=== PATIENT | female | born 1980 | race Caucasian/White ===

== ENCOUNTER 2017-02-23 08:34 | Emergency (ER) | payer OTHER ==
[~2017-02-23] VITALS: Ht 162.6 cm; Wt 122.5 kg
[~2017-02-23 08:34] MED LIST: ALBUTEROL SULF8.5 GM INH; CYCLOBENZAPRINE10 MG PO; CYMBALTA60 MG PO; FLUTICASONE PRO16 GM NAS; IBUPROFEN600 MG PO; LIDODERM700 MG TOP; MOTRIN IB200 MG PO; MULTI-DAY VITA1 EACH PO; OXYCODONE HCL5 MG PO; PERCOCET 5-3251 EACH PO; PRISTIQ ER50 MG PO; REGLAN10 MG PO; SENNA PLUS TAB1 EACH PO; [UNRECOGNIZED DRUG - OTHER] PO
[2017-02-23] MEDS ORDERED: XANAX0.5 MG PO (09:37)
--- NOTE | 2017-02-23 18:48 | EKG ---
[facility] [address] [facility] [place] [address] Signed Normal sinus rhythm Normal ECG When compared with ECG of 14-MAY-2016 08:37, No significant change was found Confirmed by IDALIA TAMAYO MD ([id number]) on 02/23/2017 6:48:48 PM Electronically Signed By: IDALIA TAMAYO MD 02/23/17 1848 PATIENT NAME: MOOSCOTT Electrocardiogram DATE OF : 80 PHYSICIAN: IDALIA TAMAYO MD REPORT #: [id number] REPORT IS CONFIDENTIAL AND NOT TO BE RELEASED WITHOUT AUTHORIZATION
== END 2017-02-23 09:57 | disposition home or self-care (01) ==
LOC: ED 08:34
DX: R07.9 Chest pain, unspecified (principal); F41.9 Anxiety disorder, unspecified; Z98.51 Tubal ligation status; Z88.5 Allergy status to narcotic agent; Z88.0 Allergy status to penicillin; Z88.8 Allergy status to other drugs, medicaments and biological substances; Z79.899 Other long term (current) drug therapy
CPT/HCPCS: 71010; 80053; 82150; 83690; 84484; 85025; 93005; 93010; 96374; 99284; J2060

== ENCOUNTER 2017-07-21 05:29 | Emergency (ER) | payer OTHER ==
[~2017-07-21] VITALS: Ht 162.6 cm; Wt 88.5 kg
[~2017-07-21 05:29] MED LIST changes: +XANAX0.5 MG PO
--- OUTSIDE RECORDS SUMMARY | 2017-07-21 05:41 | XMS | Clinical Summary ---
Demographics + + + | Address | [address] | | | [place] [address] | + + + | Home Phone | | + + + | Preferred Language | Unknown | + + + | Marital Status | | + + + | Presybeterian Affiliation | Unknown | + + + | Race | Unknown | + + + | Ethnic Group | Unknown | + + + Author + + + | Author | [facility] | + + + | Organization | [facility] | + + + | Address | Unknown | + + + | Phone | Unavailable | + + + Support + + +---------+ + | Name | Relationship | Address | Phone | + + +---------+ + | Alyx Trujillo | ECON | Unknown | | + + +---------+ + | Maame Nascimento | ECON | Unknown | | + + +---------+ + Care Team Providers + +------+ + | Care Campus Recruiter Name | Role | Phone | + +------+ + PP | Unavailable | + +------+ + Allergies Not on File Current Medications Not on file Active Problems Not on file Social History + +-------+ +--------+------+ | Tobacco Use | Types | Packs/Day | Years | Date | | | | | Used | | + +-------+ +--------+------+ | Never Assessed | | | | | + +-------+ +--------+------+ + + + | Sex Assigned at | Date Recorded | | | | + + + | Not on file | | + + + Plan of Treatment + + + + + | Health Maintenance | Due Date | Last Done | Comments | + + + + + | Vaccine: | | | | | Dtap/Tdap/Td (1 - | 0 | | | | Tdap) | | | | + + + + + | Cervical Cancer | | | | | Screening (Pap) | 2 | | | + + + + + | Vaccine: Influenza | | | | | (Season Ended) | 8 | | | + + + + + Results Not on filefrom Last 3 Months Insurance + +--------+ +------+-------+ + | Payer | Benefi | Subscriber | Type | Phone | Address | | | t Plan | ID | | | | | | / | | | | | | | Group | | | | | + +--------+ +------+-------+ + | MEDICAID | [place] | [id number] | | | [address] | | | N | | | | [place] | | | [place] | | | | [address] | | | BIOSTATISTICS DIRECTOR | | | | | + +--------+ +------+-------+ + + +--------+ +--------+ + + | Guarantor Name | Accoun | Relation to | Date | Phone | Billing Address | | | t Type | Patient | of | | | | | | | | | | + +--------+ +--------+ + + | TISHA TRUJILLO | Person | Self [birth year] | Home: | [address] | | | al/Fam | | 1980 | [phone] | [place] | | | [place] | | | [address] | [phone] | + +--------+ +--------+ + +"
--- OUTSIDE RECORDS SUMMARY | 2017-07-21 05:41 | XMS | Clinical Summary ---
Demographics + + + | Address | [address] | | | [place] [address] | + + + | Home Phone | | + + + | Preferred Language | Unknown | + + + | Marital Status | | + + + | Confucianism Affiliation | Unknown | + + + | Race | Unknown | + + + | Ethnic Group | Unknown | + + + Author + + + | Author | [employer] [facility] | + + + | Organization | [facility] | + + + | Address | [...] Team Providers + +------+ + | Care Glacing Machine Tender Name | Role | Phone | + [...] | | [place] | | | | [phone] | | | PATCHER HELPER | | | | | + +--------+ [...] | | al/Fam | | 1980 | [phone] | [place] | | | [place] | | | [address] | [phone] | + +--------+ +--------+ + +"
[2017-07-21] MEDS ORDERED: CYMBALTA30 MG PO (05:44)
[2017-07-21] MEDS ORDERED: TRAMADOL HCL50 MG PO (07:04)
== END 2017-07-21 07:20 | disposition home or self-care (01) ==
LOC: ED 05:29
DX: S29.012A Strain of muscle and tendon of back wall of thorax, initial encounter (principal); X58.XXXA Exposure to other specified factors, initial encounter; Z88.5 Allergy status to narcotic agent; Z88.8 Allergy status to other drugs, medicaments and biological substances; Z88.0 Allergy status to penicillin; Z79.899 Other long term (current) drug therapy
CPT/HCPCS: 72040; 72070; 80053; 85025; 96372; 99283; J1885

== ENCOUNTER 2017-08-19 06:11 | Emergency (ER) | payer OTHER ==
[~2017-08-19] VITALS: Ht 162.6 cm; Wt 82.5 kg
[~2017-08-19 06:11] MED LIST changes: +CYMBALTA30 MG PO; +TRAMADOL HCL50 MG PO
[2017-08-19] MEDS ORDERED: VENTOLIN HFA18 GM (06:23)
[2017-08-19] MEDS ORDERED: IBU800 MG PO (06:23)
[2017-08-19] MEDS ORDERED: DICLOFENAC SODI75 MG PO (06:42)
== END 2017-08-19 06:51 | disposition home or self-care (01) ==
LOC: ED 06:11
DX: M54.5 Low back pain (principal); F17.200 Nicotine dependence, unspecified, uncomplicated; Z88.5 Allergy status to narcotic agent; Z88.0 Allergy status to penicillin; Z88.1 Allergy status to other antibiotic agents; Z88.8 Allergy status to other drugs, medicaments and biological substances; Z79.899 Other long term (current) drug therapy
CPT/HCPCS: 99283

== ENCOUNTER 2018-07-04 13:38 | Emergency (ER) | payer OTHER ==
[~2018-07-04] VITALS: Ht 162.6 cm; Wt 79.4 kg
--- OUTSIDE RECORDS SUMMARY | ~2018-07-04 | XMS | Clinical Summary ---
Demographics + + + | Address | [address] | | | [place] [address] | + + + | Home Phone | | + + + | Preferred Language | Unknown | + + + | Marital Status | | + + + | Islam Affiliation | Unknown | + + + | Race | Unknown | + + + | Ethnic Group | Unknown | + + + Author + + + | Author | [employer] | + + + | Organization | [facility] | + + + | Address | [...] Team Providers + +------+ + | Care Co Op Name | Role | Phone | + [...] | | | | Screening (Pap) | 1 | | | + + + + + | Vaccine: Influenza | | | | | (Season Ended) | 9 | | | + + + + [...] +------+-------+ + | MEDICAID | [place] | [id number] | | | [address] | | | N | | | | [place] | | | [place] | | | | [phone] | | | CUSTOMER RELATIONS CONSULTANT | | | | | + +--------+ [...] | | al/Fam | | 1980 | [phone] | [place] | | | [place]if | | | [address] | [phone] | + +--------+ +--------+ + +"
--- OUTSIDE RECORDS SUMMARY | ~2018-07-04 | XMS | Clinical Summary ---
Demographics + + + | Address | [address] | | | [place] [address] | + + + | Home Phone | | + + + | Preferred Language | Unknown | + + + | Marital Status | | + + + | Alevism Affiliation | Unknown | + + + | Race | Unknown | + + + | Ethnic Group | Unknown | + + + Author + + + | Author | [employer] | + + + | Organization | [facility] | + + + | Address | [...] Team Providers + +------+ + | Care Sieve Repairer Name | Role | Phone | + [...] +------+-------+ + | MEDICAID | [place] | [id number] | | | [address] | | | N | | | | [place] | | | [place] | | | | [phone] | | | REVENUE ENFORCEMENT COLLECTION AGENT | | | | | + +--------+ [...] | | al/Fam | | 1980 | [phone] | [place] | | | [place] | | | [address] | [phone] | + +--------+ +--------+ + +"
[~2018-07-04 13:38] MED LIST changes: +DICLOFENAC SODI75 MG PO; +IBU800 MG PO; +VENTOLIN HFA18 GM
--- OUTSIDE RECORDS SUMMARY | 2018-07-04 13:42 | XMS ---
PreManage Notification: SCOTT CORTÉS Security Web Administrator Events No recent Security Events currently on file [facility] There are no care providers on record at this time. Shobha has no Care Guidelines for this patient. Zane VISIT COUNT (12 MO.) 4 MARGARITA Sanders TOTAL 4 NOTE: Visits indicate total known visits. ED/C VISIT TRACKING (12 MO.) 07/04/2018 13:39 [facility] [place] TYPE: Emergency COMPLAINT: - R SHOULDER PAIN 02/19/2018 09:24 [facility] [place] TYPE: Emergency COMPLAINT: - COUGH/BLOOD X 2 DIAGNOSES: - Acute upper respiratory infection, unspecified - Allergy status to narcotic agent status - Hemoptysis - Fever, unspecified - Allergy status to other drugs, medicaments and biological substances status - Allergy status to penicillin - Nicotine dependence, unspecified, uncomplicated 08/19/2017 06:12 [facility] [place] TYPE: Emergency COMPLAINT: - BACK PAIN/FALL DIAGNOSES: - Allergy status to other drugs, medicaments and biological substances status - Nicotine dependence, unspecified, uncomplicated - Allergy status to penicillin - Allergy status to narcotic agent status - Allergy status to other antibiotic agents status - Low back pain - 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 07/21/2017 05:30 [facility] [place] TYPE: Emergency COMPLAINT: - RT SIDED NECK/SHOULDER PAIN DIAGNOSES: - Dorsalgia, unspecified - Other usp (current) drug therapy - Allergy status to narcotic agent status - Exposure to other specified factors, initial encounter - Allergy status to other drugs, medicaments and biological substances status - Strain of muscle and tendon of back wall of thorax, initial encounter - Allergy status to penicillin INPATIENT VISIT TRACKING (12 MO.) No inpatient visits to display in this time frame [email or web address]
== END 2018-07-04 14:19 | disposition home or self-care (01) ==
LOC: ED 13:38
DX: S43.401A Unspecified sprain of right shoulder joint, initial encounter (principal); X50.0XXA Overexertion from strenuous movement or load, initial encounter; F17.200 Nicotine dependence, unspecified, uncomplicated; Z88.5 Allergy status to narcotic agent; Z88.0 Allergy status to penicillin; Z88.8 Allergy status to other drugs, medicaments and biological substances; Z79.899 Other long term (current) drug therapy
CPT/HCPCS: 99283

== ENCOUNTER 2020-05-10 10:54 | Emergency (ER) | payer OTHER ==
[~2020-05-10] VITALS: Ht 162.6 cm; Wt 90.7 kg
--- OUTSIDE RECORDS SUMMARY | 2020-05-10 10:58 | XMS ---
PreManage Notification: SCOTT CORTÉS Security Review Nurse Events No recent Security Events currently on file CRITERIA MET - [facility] - Has Care Guidelines CARE PROVIDERS NITESH HANSON Internal Medicine 07/05/2018-Current PHONE: [phone] Guidelines Source: [employer] [facility] Guidelines Date: 08/08/2019 Care Coordination: Member is currently enrolled in Mental Health Services through [employer]. If services are needed through [employer] please call: Mateo [phone] [place]on[place]/Cesar Guy\T\nbsp; [phone] [facility] [phone] Care History Medical/Surgical 07/05/2018 [facility] - Patient is currently established with [facility]. If patient is seen in the ED during business hours. Please contact CHWs at [facility]. Care Recommendation: This patient has had 5 or more Emergency Department visits in the last 12 months.\T\nbsp; Patient requires education on the scope and purpose of the ED as an acute care provider not a Primary Care Provider and should not be utilized for chronic conditions.\T\nbsp; These are guidelines and the provider should exercise clinical judgment when providing care. E.D. VISIT COUNT (12 MO.) 1 MARGARITA Sanders TOTAL 1 NOTE: Visits indicate total known visits. ED/UCC VISIT TRACKING (12 MO.) 05/10/2020 10:55 [facility] [place] TYPE: Emergency COMPLAINT: - FALL, HEAD AND BACK PAIN, SOB INPATIENT VISIT TRACKING (12 MO.) No inpatient visits to display in this time frame [id number]
[2020-05-10] MEDS ORDERED: PRAZOSIN HCL1 MG PO (11:07)
[2020-05-10] MEDS ORDERED: NYSTATIN15 GM TOP (11:07)
[2020-05-10] MEDS ORDERED: ONDANSETRON ODT8 MG PO (12:41)
== END 2020-05-10 13:04 | disposition home or self-care (01) ==
LOC: ED 10:54
DX: S06.0X9A Concussion with loss of consciousness of unspecified duration, initial encounter (principal); S10.93XA Contusion of unspecified part of neck, initial encounter; S20.229A Contusion of unspecified back wall of thorax, initial encounter; W01.198A Fall on same level from slipping, tripping and stumbling with subsequent striking against other object, initial encounter; Z88.5 Allergy status to narcotic agent; Z88.8 Allergy status to other drugs, medicaments and biological substances; Z88.0 Allergy status to penicillin; Z88.1 Allergy status to other antibiotic agents; Z79.899 Other long term (current) drug therapy
CPT/HCPCS: 99283

== ENCOUNTER 2021-01-03 05:53 | Day surgery (SDC) | payer OTHER ==
[~2021-01-03] VITALS: Ht 162.6 cm; Wt 89.5 kg
[~2021-01-03 05:53] MED LIST changes: +GABAPENTIN100 MG PO; +NYSTATIN15 GM TOP; +ONDANSETRON ODT8 MG PO; +PRAZOSIN HCL1 MG PO
--- NOTE | 2021-01-03 07:47 | NUR ---
PT ALERT,ORIENTED AND SUPPORTED BY HER ELSA BOTH ARE PLEASANT, ESLA WILL REMAIN DURING SURGERY-GAVE DIRECTIONS FOR BLDG. ALL QUESTIONS ASKED WERE ANSWERED. PT WAITING FOR DR MALIK. SEEM PLEASED WITH CARE. GAVE ENCOURAGEMENT AND BLESSING. WILL FOLLOW NEEDED
--- NOTE | 2021-01-03 08:54 | NUR ---
01/03/21 0888 Eliana Doherty 0880 PATIENT ARRIVES TO PACU UNRESPONSIVE TO PAIN, ORAL AIRWAY IN PLACE. RESP EVEN AND UNLABORED, NEEDS OCCASIONAL JAW THRUST, MASK AT 8 LITERS.
--- NOTE | 2021-01-03 10:19 | NUR ---
1019 PATIENT UP WITH STANDBY ASST TO COMMODE PER PATIENT REQUEST TO URINATE. TAKING SIPS OF WATER.
--- NOTE | 2021-01-03 11:05 | NUR ---
PATIENT SITTING UP IN BED. AWAKE OFF AND ON, BUT STILL VERY DROWSY. RESP EVEN AND UNLABORED, NC OFF, ROOM AIR SATS >95%. PATIENT EATING CRACKERS. C/O NAUSEA. MEDICATED FOR NAUSEA. ALSO CONTINUES TO RATE PAIN 8/10. EXPLAINED TO PATIENT SHE WILL NEED TO HAVE A LITTLE FOOD IN HER STOMACH SO THAT SHE DOES HAVE ANY WORSE NAUSEA, THEN WILL MEDICATE WITH PAIN PILL. PATIENT AND SPOUSE AGREE WITH PLAN. AT BEDSIDE, CALL LIGHT WITHIN REACH.
--- NOTE | 2021-01-03 11:15 | NUR ---
PATIENT UP TO BEDSIDE COMMODE WITH STANDBY ASST. UNMEASURED URINE X1. BACK TO BED. CALL LIGHT WITHIN REACH. SPOUSE AT BEDSIDE. ENCOURAGED PATIENT TO TAKE SIPS OF WATER AND EAT A CRACKER.
--- NOTE | 2021-01-03 12:25 | NUR ---
1225 PT COMPLAINS OF PAIN 8-12/06, SHE ATE CRACKERS AND A PUDDING CUP, I CAME BACK INTO HER ROOM WITH PAIN MEDS AND PT COMPLAINS OF NAUSEA, PAIN PILL HELD
--- NOTE | 2021-01-03 12:53 | NUR ---
1245 PT WALKED TO THE BATHROOM WITH MINIMAL ASSIST. SHE WAS ABLE TO VOID 400ML OF CLEAR YELLOW URINE
[2021-01-04] MEDS ORDERED: PROMETHAZINE HC25 M1 PO (00:35)
[2021-01-04] MEDS ORDERED: DILAUDID2 MG PO (11:20)
--- NOTE | 2021-01-06 14:04 | OR ---
[facility] [address] [place], [place] [address] Signed DATE OF OPERATION: 01/03/2021 SURGEON: Devi Malik MD PREOPERATIVE DIAGNOSIS: Chronic cholecystitis. POSTOPERATIVE DIAGNOSES: 1. Chronic cholecystitis. 2. Cholesterolosis. PROCEDURE: Laparoscopic cholecystectomy with intraoperative cholangiogram. ESTIMATED BLOOD LOSS: None. FINDINGS: The intraoperative cholangiogram was unremarkable. The gallbladder showed significant cholesterolosis. INDICATIONS: Tisha is a 40-year-old female with a body mass index of 34. She has been having trouble with a belt-like epigastric abdominal pain with associated nausea and vomiting. It has been getting worse. It is worse after she eats. She was trying to follow a diabetic diet along with her . Nevertheless, it has gotten worse the last year. She went to her primary care provider. Gallbladder ultrasound was unremarkable. The HIDA scan showed her gallbladder ejection fraction good at 76%. However, injection of the CCK reproduced her symptoms. As a result, she was asked to see me as a general surgeon. In the office, I gave Tisha a booklet on the gallbladder. We reviewed the location and function of the gallbladder. We have reviewed laparoscopic versus open cholecystectomy. She understands expected intraop and postop course. There is risk with the surgery including, but not limited to bleeding, infection, scarring, change in contour of the skin, damage to bowel, damage to the main bile duct, incisional hernias, and other unforeseen comorbidities. She had expressed understanding and wished to proceed. PROCEDURE IN DETAIL: I met with Tisha in our preop area along with her . After answering the questions, Tisha was taken into the operating room. She was placed in the supine position under general endotracheal tube anesthesia. She was given preoperative antibiotics along with Electronically Signed By: DEVI MALIK MD 01/03/21 1138 PATIENT NAME: TISHA CORTÉS OPERATIVE REPORT DATE OF : 80 REPORT #: [id number] PHYSICIAN: DEVI MALIK MD PCP: SHERI ARNOLD MD REPORT IS CONFIDENTIAL AND NOT TO BE RELEASED WITHOUT AUTHORIZATION [facility] [address] [place], [place] [address] Signed subcutaneous heparin. SCDs were utilized. She was then prepped and draped in the usual sterile fashion. All trocars were then placed in the usual positions under direct visualization of camera without difficulty. The gallbladder was grasped and elevated in the right upper quadrant. We took pictures throughout for photodocumentation. The triangle of Calot was dissected free. The cholangiocatheter was inserted into the cystic duct. The intraoperative cholangiogram was performed. The intraoperative cholangiogram was unremarkable. The cystic duct stump was secured with a PDS Endoloop and 2 clips were placed across the cystic duct stump to larry its location. Two clips have been placed across the cystic artery and it was divided. The gallbladder was then removed from the gallbladder fossa with the help of the cautery and placed into an EndoCatch bag. The gallbladder fossa and right upper quadrant were irrigated and suctioned out until clear. We used our laparoscopic suturing device to pass 0 Vicryl suture on either side of the fascia of the subxiphoid trocar site. This was tied down to close this fascia primarily. After this, all the gas was allowed to escape and all the trocars were removed along with the gallbladder. The gallbladder was passed off the table to our circulating nurse for photodocumentation. It demonstrated significant cholesterolosis. After this, the fascia of the supraumbilical trocar site was closed with interrupted and [id number] 0 Vicryl suture. Local anesthetic was injected into all trocar sites. The skin and dermis of each trocar site were closed with interrupted 3-0 subcuticular Monocryl sutures. Dry gauze and tape were applied over all incisions. Tisha was then awakened from anesthesia, extubated in the OR and taken to the recovery room in stable condition. Devi Malik MD ALB/MODL /[id number] cc: MD Sheri Velasquez MD Copies: DEVI MALKI MD Electronically Signed By: DEVI MALIK MD 01/03/21 1138 PATIENT NAME: TISHA CORTÉS OPERATIVE REPORT DATE OF : 80 REPORT #: [id number] PHYSICIAN: DEVI MALIK MD PCP: SHERI ARNOLD MD REPORT IS CONFIDENTIAL AND NOT TO BE RELEASED WITHOUT AUTHORIZATION [address] [address] Signed ~ Electronically Signed By: DEVI MALIK MD 01/03/21 1138 PATIENT NAME: MOOTISHA MICAH OPERATIVE REPORT DATE OF : 80 REPORT #: [id number] PHYSICIAN: DEVI MALIK MD PCP: SHERI ARNOLD MD REPORT IS CONFIDENTIAL AND NOT TO BE RELEASED WITHOUT AUTHORIZATION
--- NOTE | 2021-01-06 15:57 | PATH ---
[facility] [address] [place], [place] [address] Signed SPECIMEN(S): A GALLBLADDER SPECIMEN SOURCE: A. GALLBLADDER CLINICAL HISTORY: Chronic cholecystitis. FINAL PATHOLOGIC DIAGNOSIS: Gallbladder, cholecystectomy: - Gallbladder without significant histopathologic changes. TWK:[facility]:C2NR MICROSCOPIC EXAMINATION: Histologic sections of all submitted blocks are examined by light microscopy. These findings, together with the gross examination, support the pathologic diagnosis. GROSS DESCRIPTION: The specimen, labeled "AP, gallbladder," is received in formalin and consists of: Specimen: Previously opened gallbladder. Dimensions: 5.7 cm in length 1.0 cm in inner circumference. Serosa: Violaceous and smooth. Cystic Duct: Unobstructed. Calculi: No calculi are grossly identified within the gallbladder or within the container. Mucosa: [place] and velvety. Wall thickness: 0.2 cm. Lymph node: No pericystic lymph nodes are grossly identified. Additional: None. Accounts Administrator sections are submitted in cassette (A1). JS (under the direct supervision of a pathologist) The Gross Description was prepared using a voice recognition system. The report was reviewed for accuracy; however, sound-alike word errors, addition and/or deletions may occur. If there is any question about this report, please contact Client Services. PERFORMING LABORATORY: The technical component was performed by [employer], [address] [place] [address] (Robotype Operator: Scott Bhardwaj MD; CLIA# [id number]). PATIENT NAME: SCOTT CORTÉS PATHOLOGY DATE OF : 80 REPORT #: [id number] PHYSICIAN: RISHI PATHOLOGY PCP: SANCHEZ ARNOLD MD REPORT IS CONFIDENTIAL AND NOT TO BE RELEASED WITHOUT AUTHORIZATION [facility] [address] [place], [place] [address] Signed Professional interpretation was performed by [facility], [address] [address] (CLIA# [id number]). Diagnostician: Nolan Cox MD Pathologist Electronically Signed 01/06/2021 Copies: ~ PATIENT NAME: SCOTT CORTÉS PATHOLOGY DATE OF : 80 REPORT #: [id number] PHYSICIAN: RISHI PATHOLOGY PCP: SANCHEZ ARNOLD MD REPORT IS CONFIDENTIAL AND NOT TO BE RELEASED WITHOUT AUTHORIZATION
== END 2021-01-03 13:00 | disposition home or self-care (01) ==
LOC: DS 05:53
PROVIDERS: ATTEND Colon & Rectal Surgery
PROC: BF03YZZ Plain Radiography of Gallbladder and Bile Ducts using Other Contrast (ICD-10-PCS; 2021-01-03)
PROC: 0FT44ZZ Resection of Gallbladder, Percutaneous Endoscopic Approach (ICD-10-PCS; principal; 2021-01-03 06:45)
DX: K81.1 Chronic cholecystitis (principal); J45.909 Unspecified asthma, uncomplicated
CPT/HCPCS: 74300; J0131; J0690; J1100; J1170; J1644; J1790; J1885; J2001; J2250; J2405; J2704; J7121; Q9967

== ENCOUNTER 2021-01-03 22:40 | Emergency (ER) | payer OTHER ==
[~2021-01-03] VITALS: Ht 162.6 cm; Wt 89.4 kg
--- OUTSIDE RECORDS SUMMARY | 2021-01-03 22:42 | XMS ---
PreManage Notification: SCOTT CORTÉS Security Vegetable I Farmworker Events No recent Security Events currently on file CRITERIA MET - Group Notification - PDMP - - Has Care Guidelines CARE PROVIDERS NITESH HANSON Internal Medicine 07/05/2018-Current PHONE: [phone] SANCHEZ ARNOLD [facility] 05/14/2020-Current PHONE: [phone] Guidelines Source: [employer] [facility] Guidelines Date: 08/08/2019 Care Coordination: Member is currently enrolled in Mental Health Services through [employer]. If services are needed through [employer] please call: Mateo [phone] [place]/[facility]; [phone] [facility] [phone] Care History Medical/Surgical 05/15/2020 [facility] Concussion from fall on ice. Appropriate use of ED. 07/05/2018 [facility] - Patient is currently established with [facility]. If patient is seen in the ED during business hours. Please contact CHWs at [facility]. Care Recommendation: This patient has had 5 [...] providing care. E.D. VISIT COUNT (12 MO.) 2 MARGARITA Sanders TOTAL 2 NOTE: Visits indicate total known visits. ED/UCC VISIT TRACKING (12 MO.) 01/03/2021 22:40 [facility] [place] TYPE: Emergency COMPLAINT: - POST OP PROBLEM 05/10/2020 10:[address] 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 - Concussion with loss of consciousness of unspecified duration, initial encounter - Allergy status to narcotic agent - Contusion of unspecified part of neck, initial encounter - Fall on same level from slipping, tripping and stumbling with subsequent striking against other object, initial encounter - Headache, unspecified - Contusion of unspecified back wall of thorax, initial encounter - Allergy status to other drugs, medicaments and biological substances - Allergy status to other antibiotic agents - Allergy status to penicillin INPATIENT VISIT TRACKING (12 MO.) No inpatient visits to display in this time frame [email or web address]
[2021-01-04] MEDS ORDERED: PROMETHAZINE HC25 M1 PO (00:35)
[2021-01-04] MEDS ORDERED: DILAUDID2 MG PO (11:20)
== END 2021-01-04 00:50 | disposition home or self-care (01) ==
LOC: ED 22:40
DX: G89.18 Other acute postprocedural pain (principal); R10.11 Right upper quadrant pain; R11.2 Nausea with vomiting, unspecified; M79.7 Fibromyalgia; Z88.0 Allergy status to penicillin; Z88.5 Allergy status to narcotic agent; Z88.8 Allergy status to other drugs, medicaments and biological substances; Z88.6 Allergy status to analgesic agent; Z88.1 Allergy status to other antibiotic agents; Z79.899 Other long term (current) drug therapy
CPT/HCPCS: 74177; 80053; 83690; 84703; 85025; 96375; 99284-25; J1885; J2765; J7030; Q9967

== ENCOUNTER 2021-01-04 09:25 | Emergency (ER) | payer OTHER ==
[~2021-01-04] VITALS: Ht 162.6 cm; Wt 93.9 kg
[~2021-01-04 09:25] MED LIST changes: +PROMETHAZINE HC25 M1 PO
--- OUTSIDE RECORDS SUMMARY | 2021-01-04 09:28 | XMS ---
PreManage Notification: SCOTT CORTÉS Security Noc Engineer Events No recent Security Events currently on file CRITERIA MET - PDMP - Group Notification - [facility] - Has Care Guidelines - [facility] - 2 Visits in 30 Days CARE PROVIDERS NITESH HANSON Internal Medicine 07/05/2018-Current PHONE: [phone] SANCHEZ ARNOLD [facility] 05/14/2020-Current PHONE: [phone] Guidelines Source: [employer] [facility] Guidelines Date: 08/08/2019 Care Coordination: Member is currently enrolled in Mental Health Services through [employer]. If services are needed through [employer] please call: Mateo [phone] [facility]; [phone] Crisis [phone] Care History Medical/Surgical 05/15/2020 [facility] Concussion from fall on ice. Appropriate use of ED. 07/05/2018 [facility] - Patient is currently established with [facility]. If patient is seen in the ED during business hours. Please contact CHWs at [facility]. Care Recommendation: This patient has had 5 [...] providing care. E.D. VISIT COUNT (12 MO.) 3 MARGARITA Sanders TOTAL 3 NOTE: Visits indicate total known visits. ED/UCC VISIT TRACKING (12 MO.) 01/04/2021 09:26 [facility] [place] TYPE: Emergency COMPLAINT: - POST OP PAIN 01/03/2021 22:40 [facility] [place] TYPE: Emergency COMPLAINT: - POST OP PROBLEM 05/10/2020 10:55 [facility] [place] TYPE: Emergency COMPLAINT: - FALL, HEAD AND BACK PAIN, SOB DIAGNOSES: - Other intermediate (current) drug therapy - Concussion with loss [...] visits to display in this time frame [email or web address]
[2021-01-04] MEDS ORDERED: DILAUDID2 MG PO (11:20)
== END 2021-01-04 11:35 | disposition home or self-care (01) ==
LOC: ED 09:25
DX: G89.18 Other acute postprocedural pain (principal); R10.10 Upper abdominal pain, unspecified; M79.10 Myalgia, unspecified site; Z88.0 Allergy status to penicillin; Z88.5 Allergy status to narcotic agent; Z88.2 Allergy status to sulfonamides; Z88.8 Allergy status to other drugs, medicaments and biological substances; Z88.1 Allergy status to other antibiotic agents; Z79.899 Other long term (current) drug therapy
CPT/HCPCS: 80053; 83690; 85025; 96374; 96375; 99283-25; J1170; J1885; J2405; J7030

== ENCOUNTER 2023-07-09 05:50 | Day surgery (SDC) | payer OTHER ==
[2023-07-05 11:58] VITALS: BP 108/71
[~2023-07-09] VITALS: Ht 162.6 cm; Wt 86.4 kg
[~2023-07-09 05:50] MED LIST changes: +BUTALB-ACETAMI1 EAC2 PO; +DILAUDID2 MG PO; +LACTATED RINGER'S 1,000 ML IV SCH
[2023-07-09 06:07] VITALS: BP 112/70
[2023-07-09] MEDS ORDERED: LIDOCAINE HCL 1% 5 ML SDV INJ ONE (07:00)
[2023-07-09] MEDS ORDERED: HEParin SOD (PORCINE) 5,000 UNIT/0.5 ML SYR SUB-Q SCH (07:00)
[2023-07-09] MEDS ORDERED: IBLOOD GLUCOSE TEST STRIP 1 EA TEST VI PRN ×2 (07:00→09:30)
[2023-07-09] MEDS ORDERED: CEFAZOLIN SODIUM 2 GM/20 ML SYR IV SCH (07:00)
--- NOTE | 2023-07-09 07:31 | NUR ---
ATTEMPTED TO VISIT DURING SPIRITUAL CARE ROUNDS. PT REQUESTED ASSISTANCE GETTING TO BATHROOM. I INFORMED NURSE. PROVIDED SILENT PRAYER.
[2023-07-09] MEDS ORDERED: dexmedeTOMIDine HCl 200 MCG/2 ML VIAL ONE (08:44)
[2023-07-09] MEDS ORDERED: KETAMINE in NS 50 MG/5 ML SYR ONE (08:44)
[2023-07-09] MEDS ORDERED: MIDAZOLAM HCL 2 MG/2 ML VIAL ONE (08:44)
[2023-07-09] MEDS ORDERED: DEXAMETHASONE SOD PHOS 4 MG/ML VIAL ONE (08:44)
[2023-07-09] MEDS ORDERED: ondansetron HCL 4 MG/2 ML VIAL ONE (08:44)
[2023-07-09] MEDS ORDERED: KETOROLAC TROMETHAMINE 30 MG/ML VIAL ONE (08:44)
[2023-07-09] MEDS ORDERED: propofoL 200 MG/20 ML VIAL ONE (08:44)
[2023-07-09] MEDS ORDERED: LIDOCAINE HCL 1% 30 ML SDV ONE ×2 (08:45→09:47)
[2023-07-09] MEDS ORDERED: MIDAZOLAM HCL 2 MG/2 ML VIAL IV PRN (09:30)
[2023-07-09] MEDS ORDERED: NALOXONE HCL 0.4 MG SYR IV PRN ×2 (09:30→11:15)
[2023-07-09] MEDS ORDERED: HYDROmorphone HCL 1 MG/ML SYR IV PRN ×2 (09:30→11:15)
[2023-07-09] MEDS ORDERED: ondansetron HCL 4 MG/2 ML VIAL IV PRN ×2 (09:30→11:15)
[2023-07-09] MEDS ORDERED: ACETAMINOPHEN 1,000 MG/100 ML VIAL ONE (09:43)
[2023-07-09] MEDS ORDERED: BUPIVACAINE HCL 0.25% 30 ML SDV ONE (09:46)
[2023-07-09] MEDS ORDERED: LIDOCAINE 1% W/ EPI 1:200,000 30 ML SDV ONE (09:49)
[2023-07-09] MEDS ORDERED: GLYCOPYRROLATE 1 MG/5 ML MDV ONE (09:55)
[2023-07-09] MEDS ORDERED: LACTATED RINGER'S 1,000 ML IV ONE (10:26)
--- NOTE | 2023-07-09 11:12 | NUR ---
07/09/23 Jennifer2 Vaughn Chandler 1053: PT ARRIVED TO PACU VIA STRETCHER. PT ON RA. SATS HIGH 90'S. PT RESPONSIVE TO TOUCH.
[2023-07-09] MEDS ORDERED: PROCHLORPERAZINE EDISYLATE 10 MG/2 ML VIAL IV PRN (11:15)
[2023-07-09] MEDS ORDERED: HYDROmorphone HCL 4 MG TAB PO PRN (11:15)
[2023-07-09 11:41] VITALS: BP 119/94
--- NOTE | 2023-07-09 11:44 | NUR ---
PT ARRIVES TO DS UNIT FROM PACU VIA STRETCHER. PT REPORTS PAIN IS 4/10 AND DESCRIBES OF PRESSURE AT THIS TIME. PT IS A&O AND ASKING QUESTIONS APPROPRIATELY. PT REPORTS MINOR DIZZINESS, TOLERATING ICE WATER AND CRACKERS WITHOUT DIFFICULTY. PT IS ON RA W/O2 >90% VIA RA, RESPIRATIONS ARE EVEN AND UNLABORED, NO SIGNS OF DISTRESS. REPORT RECEIVED FROM CORDELL RN, FAMILY AT BEDSIDE, DRESSING VISUALIZED W/RN. ICE PACK READJUSTED TO BETTER SUIT ANATOMICAL POSITION OF DRESSING, PT STATES IMPROVEMENT IN PAIN. CALL LIGHT WITHIN REACH, NO FURTHER NEEDS AT THIS TIME. FAMILY REMAINS AT BEDSIDE.
[2023-07-09 12:45] VITALS: BP 102/61
--- NOTE | 2023-07-09 12:51 | NUR ---
PATO 1225-PATEINT HAS BEEN EATING CRACKERS. STATES CONTINUES TO HAVE SOME NASUEA. MEDICATION GIVEN PER EMAR.
--- NOTE | 2023-07-09 13:06 | NUR ---
LE 1245-PT RATES PAIN 5/10. PAIN MEDICATION GIVEN PER EMAR. LE 1247-PATEINT LAYING IN BED AWAKE. RESP EVEN AND UNLABORED. RATES PAIN 5/10. DRESSING IS CLEAN, DRY, AN INTACT. FAMILY IN ROOM. CALL LIGHT WITHIN REACH.
--- NOTE | 2023-07-09 13:08 | NUR ---
LE 1255-PATIENT SITTING AT BEDSIDE. FEELS A LITTLE DIZZY. LE 1257-PATIENT AMBULATES TO RESTROOM WITH 1 RN ASSIST. GAIT UNSTEADY BUT TOLERATED WELL. PATIENT VOIDS 700ML OF YELLOW URINE. LE 1305-PATINET BACK TO ROOM. NO OTHER NEEDS AT THIS TIME. CALL LIGHT WITHIN REACH.
[2023-07-09 13:41] VITALS: BP 99/57
--- NOTE | 2023-07-09 13:58 | NUR ---
LE 1341-PATIENT AWAKE LAYING AWAKE. RESP EVEN AND UNLABORED. RATES PAIN 2/10. DENIES NAUSEA. DRESSING IS CLEAN, DRY, AND INTACT. PATIENT IS READY TO GO HOME. PATIENT WILL GET DRESSED. FAMILY IN ROOM. CALL LIGHT WITHIN REACH.
--- NOTE | 2023-07-09 14:01 | NUR ---
PATO 1352- WENT OVER DISCHARGE INSTRUCTIONS WITH PATIENT. ALL QUESTIONS ANSWERED. PATIENT AMBULATES TO WHEELCHAIR. RIDE PROVIDED TO FRONT OF HOSPITAL WHERE WAS WAITING WITH THE CAR.
--- NOTE | 2023-07-11 08:18 | OR ---
[facility] [address], [place] [address] Signed DATE OF OPERATION: 07/09/2023 SURGEON: Devi Malik MD PREOPERATIVE DIAGNOSES: Atypical lobular hyperplasia, right breast (6 o'clock position). POSTOPERATIVE DIAGNOSIS: Atypical lobular hyperplasia, right breast (6 o'clock position). PROCEDURES: Right breast needle localization excisional biopsy. ESTIMATED BLOOD LOSS: None. INDICATIONS: Tisha is a 43-year-old female with a body mass index of 32. She had gone for her mammogram in January 2023. She had some calcifications at the 6 o'clock positions of the right breast. A diagnostic mammogram in February 2023 confirmed these calcifications. Stereotactic breast biopsy was done in March 2023 and the biopsies came back with atypical lobular hyperplasia. She had been asked to see me as a local general surgeon functional tester for an excisional biopsy to obtain more tissue. I had met with Tisha in the office and I gave her our brochure on breast biopsies and breast surgeries. We looked at that carefully page by page. She understands the nature of a needle localization excisional biopsy. She understands she will be headed to the x-ray department first for placement of the wire and come over to the OR afterwards. She understands the wire and all the tissue around the wall be removed and sent off to the radiology department while she is asleep. Afterwards, we will close up the incision and she will be able to go home later that day. There is risk to the surgery including, but not limited to bleeding, infection, scarring, change in contour of the skin as well as possible need for additional surgeries and/or treatments. She had expressed understanding and wished to proceed. PROCEDURE IN DETAIL: I met with Tisha and her and family in our preop area. She had her wire in place. We all confirmed that indeed it was the right breast and we marked that appropriately. After that, Tisha was taken in the operating room and placed in the supine position under general anesthesia. She was given preoperative antibiotics along with subcutaneous heparin. SCDs were utilized. She was then prepped and draped in the usual sterile Electronically Signed By: DEVI MALIK MD 07/11/23 0818 PATIENT NAME: TISHA CORTÉS OPERATIVE REPORT DATE OF : 80 REPORT #: [id number] PHYSICIAN: DEVI MALIK MD PCP: SANCHEZ ARNOLD MD REPORT IS CONFIDENTIAL AND NOT TO BE RELEASED WITHOUT AUTHORIZATION [facility] [address], [place] [address] Signed fashion. The calcifications were at the 6 o'clock radiant deep in the breast near the chest wall. Therefore, the wire came out next to the inframammary crease. We therefore used an incision along the inframammary crease to include the wire. We followed the tissue down and around the end of the wire all the way up next to the chest wall as reviewed on the mammogram. The specimen was then oriented with silk sutures. The wire was facing inferiorly at the inframammary crease. The deep stitches all the way up cephalad toward the chest wall and of course we had medial-lateral stitches as well. The wound was then irrigated and suctioned out until clear with water. We brought the tissues together with interrupted 3-0 Monocryl sutures. The dermis was reapproximated with interrupted 3-0 subcuticular Monocryl sutures. The skin edges were reapproximated with a running 5-0 fast absorbing plain gut suture. Dry gauze and tape were then applied. Tisha was then awakened from her anesthesia, extubated in the OR, and taken to recovery room in stable condition. Devi Malik MD ALB/MODL /[id number] cc: MD Devi Fajardo MD Copies: DEVI MALIK MD ~ Electronically Signed By: DEVI MALIK MD 07/11/23 0818 PATIENT NAME: TISHA CORTÉS OPERATIVE REPORT DATE OF : 80 REPORT #: [id number] PHYSICIAN: DEVI MALIK MD PCP: SANCHEZ ARNOLD MD REPORT IS CONFIDENTIAL AND NOT TO BE RELEASED WITHOUT AUTHORIZATION
--- NOTE | 2023-07-12 10:38 | PATH ---
[facility] [address], [place] [address] Signed SPECIMEN(S): A RIGHT BREAST TISSUE SPECIMEN SOURCE: A. RIGHT BREAST TISSUE FINAL PATHOLOGIC DIAGNOSIS: Breast, right, excision: - Atypical lobular hyperplasia - Usual ductal hyperplasia - Pseudoangiomatous stromal hyperplasia - Biopsy site changes - Microcalcifications identified in association with ALH and nonneoplastic tissue BRP MICROSCOPIC EXAMINATION: Histologic sections of all submitted blocks are examined by light microscopy. These findings, together with the gross examination, support the pathologic diagnosis. GROSS DESCRIPTION: The specimen, labeled and designated "Ye uMrphy " and designated on the requisition "right breast tissue," is received in formalin and consists of 81 gram oriented portion of yellow-underwood fibroadipose tissue that is 8.6 x 6.5 x 3.8 cm and has an inserted metal localization wire that enters anteriorly adjacent to three stitches. A short suture is present and identifies the superior margin, a long suture identifies the lateral margin, a double suture identifies the deep/posterior margin, and 3 sutures identified at wire identified near skin per requisition. The specimen is inked as follows: superior - blue; inferior - green; medial - red; lateral - orange; anterior - yellow; and posterior - black. The specimen is serially sectioned from anterior to posterior into 16 slices revealing a metallic and biopsy cavity clip in slice 11. The clip is surrounded by pink delicate fibrous tissue and is 6.1 cm from the anterior soft tissue margin, 2.6 cm from the posterior soft tissue margin, 0.5 cm from the superior soft tissue margin, 3.2 cm from the inferior soft tissue margin, 2.1 cm from the medial soft tissue margin, and 3.3 cm from the lateral soft tissue margin. Approximately 90% of the remaining specimen is a yellow-underwood greasy adipose PATIENT NAME: SCOTT CORTÉS PATHOLOGY DATE OF : 80 REPORT #: [id number] PHYSICIAN: RISHI PATHOLOGY PCP: SANCHEZ ARNOLD MD REPORT IS CONFIDENTIAL AND NOT TO BE RELEASED WITHOUT AUTHORIZATION [facility] [address], [place] [address] Signed tissue and 10% is a pink-underwood delicate fibrous tissue. A discrete mass is not grossly identified. The slices surrounding the biopsy cavity clip are entirely submitted for histologic examination. Division Commander sections are submitted in 14 cassettes. Cassette Summary: (A1) slice one, anterior soft tissue resection margin, perpendicular (A2-A5) slice 10 (A6-A9) slice 11, clip in A7 (A10-A13) slice 12 (A14) slice 16, posterior soft tissue resection margin, perpendicular Cold ischemia time: Insufficient data to calculate. Approximate Formalin time: 51 hours. FB (under the direct supervision of a pathologist) The Gross Description was prepared using a voice recognition system. The report was reviewed for accuracy; however, sound-alike word errors, addition and/or deletions may occur. If there is any question about this report, please contact Client Services. ADDITIONAL NOTES: Immunohistochemical and/or in situ hybridization studies if performed in this case included appropriate positive controls that reacted as expected. This test was developed and its performance characteristics determined by [facility]. It has not been cleared or approved by the U.S. Food and Drug Administration. The FDA has determined that such clearance or approval is not necessary. This test is used for clinical purposes. It should not be regarded as investigational or for research. [facility] is certified under the Clinical Laboratory Improvement Amendments of 1988 (CLIA) as qualified to perform high complexity clinical laboratory testing. PERFORMING LABORATORY: Technical component was performed by [facility], [address] [place] [address] (CLIA# [id number]). Professional interpretation was performed by [facility] [address] [facility] [id number] Diagnostician: Dominic Murphy MD Pathologist Electronically Signed 07/12/2023 PATIENT NAME: SCOTT CORTÉS PATHOLOGY DATE OF : 80 REPORT #: [id number] PHYSICIAN: RISHI PATHOLOGY PCP: SANCHEZ ARNOLD MD REPORT IS CONFIDENTIAL AND NOT TO BE RELEASED WITHOUT AUTHORIZATION [facility] [address] [place] [id number] Signed Copies: ~ PATIENT NAME: SCOTT CORTÉS PATHOLOGY DATE OF : 80 REPORT #: [id number] PHYSICIAN: RISHI KIMBALL PCP: SANCHEZ ARNOLD MD REPORT IS CONFIDENTIAL AND NOT TO BE RELEASED WITHOUT AUTHORIZATION
== END 2023-07-09 13:52 | disposition home or self-care (01) ==
LOC: OPS 05:50 → DS 05:50 → OPS 08:00 → DS 08:00 → OPS 13:52
PROVIDERS: ATTEND Colon & Rectal Surgery
PROC: 0HBT0ZX Excision of Right Breast, Open Approach, Diagnostic (ICD-10-PCS; principal; 2023-07-09 08:00)
DX: N60.91 Unspecified benign mammary dysplasia of right breast (principal); J45.909 Unspecified asthma, uncomplicated; Z88.8 Allergy status to other drugs, medicaments and biological substances; Z88.0 Allergy status to penicillin
CPT/HCPCS: 00400; 19281; 19283; 76098; 88305; J0131; J0690; J1100; J1644; J1885; J2250; J2405; J2704; J3490; J7121